=== PATIENT | female | born 1970 | race Two or more races ===

== ENCOUNTER 2024-11-08 07:57 | Day surgery (SDC) | payer OTHER ==
[2024-10-26 18:14] LABS: PROTHROMBIN TIME 10.9 SECONDS (9.0-11.5)
[~2024-11-08 07:57] MED LIST: B12 ACTIVE1000 MCG PO; DILTIAZEM 24HR180 MG PO; FOLIC ACID20 MG PO; HYDRODIURIL12.5 MG PO; IRBESARTAN150 MG PO; MAGNESIUM200 MG PO; OMEGA-31000 MG PO; PRAVASTATIN SOD20 MG PO; VENTOLIN HFA18 GM IH; VIT C-ROSE HIP500 MG
[2024-11-08] MEDS ORDERED: POVIDONE-IODINE 118 ML BOTT TOP ONE (11:39)
[2024-11-08] MEDS ORDERED: BUPIVACAINE HCL/MPF 0.5% 30ML VIAL ONE (11:39)
[2024-11-08] MEDS ORDERED: DIBUCAINE 30 GM TUBE ONE (11:39)
[2024-11-08] MEDS ORDERED: HEMOSTATIC MATRIX 1 KIT KIT TOP ONE (11:39)
[2024-11-08] MEDS ORDERED: LIDOCAINE HCL 1%/EPINEPHRINE 20ML VIAL IJ ONE (11:39)
[2024-11-08] MEDS ORDERED: METRONIDAZOLE/SODIUM CHLORIDE 500 MG/100 ML PIGGYBACK IV ONE (11:40)
[2024-11-08] MEDS ORDERED: CEFTRIAXONE SODIUM 2,000 MG VIAL ONE (11:40)
== END 2024-11-08 16:45 | disposition home or self-care (01) ==
LOC: CIR.AMB 07:57
PROVIDERS: ATTEND Colon & Rectal Surgery
DX: K64.1 Second degree hemorrhoids (principal); K64.4 Residual hemorrhoidal skin tags; D12.8 Benign neoplasm of rectum; D12.9 Benign neoplasm of anus and anal canal; I10 Essential (primary) hypertension; J45.909 Unspecified asthma, uncomplicated; D64.9 Anemia, unspecified